=== PATIENT | female | born 1995 | race Caucasian/White ===

== ENCOUNTER 2017-10-01 21:08 | Emergency (ER) | payer BC ==
[2017-10-01] MEDS ORDERED: diPHENhydraMINE PO* 25 MG PO ONE (21:26)
--- NOTE | 2017-10-01 21:48 | UC ---
Skin Complaint HPI - HPI Summary HPI Summary: 22 yo female with the onset of facial flushing which extended to her neck 15-20 minutes after eating fish last PM later developed intense skin redness covering most of her body rash and pruritis improve markedly after benadryl but return after 3-4 hours no abd cramps or diarrhea no hives no throat tightness/CP or SOB - History of Current Complaint Chief Complaint: UCAllergicReaction Time Seen by Provider: 10/01/17 21:18 Stated Complaint: RASH/HIVES/ ? ALLERGIC REACTION Hx Obtained From: Patient Onset/Duration: Sudden Onset, Lasting Hours Timing: Constant Onset Severity: Moderate Current Severity: Moderate Pain Intensity: 0 Pain Scale Used: 0-10 Numeric Location: Diffuse Character: Redness Alleviating Factor(s): Antihistamines Associated Signs & Symptoms: Positive: Rash Related History: Possible Reaction to: Food - Allergy/Home Medications Allergies/Adverse Reactions: Allergies Allergy/AdvReac Type Severity Reaction Status Date / Time No Known Allergies Allergy Verified 10/01/17 21:17 Home Medications: Home Medications Cetirizine* [ZyrTEC 10 MG TAB*] 10 mg PO DAILY 10/01/17 [History Confirmed 10/01] Montelukast Sodium TAB* [Singulair TAB*] 10 mg PO DAILY 10/01/17 [History Confirmed 10/01/17] diPHENhydraMINE PO* [Benadryl PO 25 MG TAB*] 25 mg PO Q6H PRN 10/01/17 [History Confirmed 10/01/17] Review of Systems Constitutional: Negative Skin: Rash Eyes: Negative ENT: Negative Respiratory: Negative Cardiovascular: Negative Gastrointestinal: Negative Genitourinary: Negative Motor: Negative Neurovascular: Negative Musculoskeletal: Negative Neurological: Negative Psychological: Negative Is Patient Immunocompromised?: No All Other Systems Reviewed And Are Negative: Yes PMH/Surg Hx/FS Hx/Imm Hx Previously Healthy: Yes - Surgical History Surgical History: None - Family History Known Family History: Positive: Hypertension - Social History Alcohol Use: Occasionally Substance Use Type: None Smoking Status (MU): Never Smoked Tobacco Physical Exam Triage Information Reviewed: Yes Appearance: Well-Appearing, No Pain Distress, Well-Nourished Vital Signs: Initial Vital Signs Temp 97.5 F 10/01/17 21:11 Pulse 74 10/01/17 21:11 Resp 14 10/01/17 21:11 BP 132/92 10/01/17 21:11 Pulse Ox 100 10/01/17 21:11 Vital Signs Reviewed: Yes Eyes: Positive: Conjunctiva Clear ENT: Positive: Normal ENT inspection Neck: Positive: Supple, Nontender, No Lymphadenopathy Respiratory: Positive: Lungs clear, Normal breath sounds, No respiratory distress, No accessory muscle use Cardiovascular: Positive: RRR, No Murmur Bowel Sounds: Positive: Present Musculoskeletal: Positive: ROM Intact, No Edema Neurological: Positive: Alert Psychological Exam: Normal Skin Exam: Other - intense erythema of face/large red patches on neck/back arms (+) dermatographia Course/Dx - Course Course Of Treatment: advised to get rechecked for new or worsening symptoms. has appt with PMD on Tuesday. may need allergy referral if not better by then - Diagnoses Provider Diagnoses: scromboid poisoning. less likely food allergy Discharge - Discharge Plan Condition: Stable Disposition: HOME Referrals: Yu Kruger [Primary Care Provider] - Additional Instructions: I suspect scomboid poisoning take benadryl 25 mg 2 pills every 4-6 hours as needed recheck for new or worsening symptoms see your MD Tuesday as planned
== END 2017-10-01 21:54 | disposition home or self-care (01) ==
LOC: UCCORT 21:08
DX: T61.11XA Scombroid fish poisoning, accidental (unintentional), initial encounter (principal); L25.8 Unspecified contact dermatitis due to other agents; Y92.9 Unspecified place or not applicable
CPT/HCPCS: 99202; A9270-GY; G0463